=== PATIENT | male | born 1995 | race Two or more races ===

== ENCOUNTER 2020-11-12 23:15 | Emergency (ER) | payer OTHER ==
[~2020-11-12] VITALS: Ht 175.3 cm; Wt 73.5 kg
[2020-11-13] MEDS ORDERED: INTESTINEX680 M1 PO (01:28)
[2020-11-13] MEDS ORDERED: AMOX1TAB5 PO (01:28)
== END 2020-11-13 01:32 | disposition home or self-care (01) ==
LOC: ER 23:15
DX: S51.822A Laceration with foreign body of left forearm, initial encounter (principal); W45.8XXA Other foreign body or object entering through skin, initial encounter; Y93.89 Activity, other specified; Y92.89 Other specified places as the place of occurrence of the external cause; Y99.8 Other external cause status